=== PATIENT | female | born 1930 | race African-American/Black ===

== ENCOUNTER 2016-08-12 04:54 | Inpatient (IN) | payer MEDICARE ==
[~2016-08-12] VITALS: Ht 149.9 cm; Wt 59.0 kg
[2016-08-12] VITALS (7 sets, daily range): BP systolic 93–152; BP diastolic 63–82
[~2016-08-12 04:54] MED LIST: FUROSEMIDE20 M1 ORAL; LEVOTHYROXINE125 MCG ORAL; VITAMIN B-12100 MCG ORAL
[2016-08-12] MEDS ORDERED: VITAMIN D1000 UNI1 ORAL (05:19)
--- NOTE | 2016-08-12 06:42 | Emergency Room Report ---
History of Present Illness General Chief Complaint: General Complaint Source: Patient, Family Member Present Illness HPI 85 YO F with no known medical problems or meds brought in by her son/daughter-in -law for bizarre behavior at home for 2 days. Patient pleasantly delirious, states she sees "Catholics" who are "spraying me" and "little men who become big men." She denies they are giving her commands or telling her to hurt herself or others. She denies herself SI, HI. Patient is wearing extravegant clothes with beads around her neck and holding rosary 0 family states she has been dressing like that "for years." Patient is alert and oriented to herself, date, time, place. Family denies any new medications. Allergies: Coded Allergies: PENICILLINS (Verified Allergy, 05/03/13) Patient History Past Medical History: none Past Surgical History: none Pertinent Family History: none Social History: Denies: alcohol use, drug use, smoking Now: No Immunizations: UTD Reviewed Nursing Documentation: PMH: Agreed, PSxH: Agreed Nursing Documentation-PMH Past Medical History: No History, Except For Hx Hypertension: No Hx Pacemaker: No Hx Asthma: No Hx COPD: No Hx Diabetes: No Hx Cancer: No Hx Gastrointestinal Problems: No Hx Dialysis: No Hx Neurological Problems: No Hx Cerebrovascular Accident: No Hx Seizures: No Review of Systems All Other Systems: negative except mentioned in HPI Physical Exam Vital Signs Date Time Temp Pulse Resp B/P Pulse Ox O2 Delivery O2 Flow Rate FiO2 08/12/16 05:00 95.7 83 20 159/86 99 Room Air Sp02 EP Interpretation: reviewed, normal General Appearance: normal inspection, well appearing, no apparent distress, alert, GCS 15, non-toxic Head: normocephalic, atraumatic Eyes: bilateral eye EOMI, bilateral eye PERRL ENT: normal ENT inspection, hearing grossly normal, normal voice Neck: normal inspection, full range of motion, supple, no bony tend Respiratory: normal inspection, lungs clear, normal breath sounds, no respiratory distress, no retraction, no wheezing Cardiovascular #1: regular rate, rhythm, no edema Gastrointestinal: normal inspection, normal bowel sounds, non tender, soft, no guarding, no hernia Genitourinary: no CVA tenderness Musculoskeletal: normal inspection, back normal, normal range of motion, Jose Elias' s Sign negative Neurologic: normal inspection, alert, oriented x3, responsive, 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 Normal affect. Extravegant clothing. Skin: normal inspection, normal color, no rash Lymphatic: normal inspection Medical Decision Making Medicare Attestation I Tonny Hart MD hereby attest that the medical record entry for date of service, 07/13/16 accurately reflects signatures/notations that I made in my capacity as MD when I treated/diagnosed the above listed Medicare beneficiary. I attest that this information is true, accurate and complete to the best of my knowledge. I understand that any falsification, omission, or concealment of material fact may subject me to administrative, civil, or criminal liability. This patient warrants hospital admission for extreme of age and has a condition that cannot be treated as outpatient. Diagnostic Impression: Primary Impression: Altered mental status Qualified Codes: R41.0 - Disorientation, unspecified Additional Impression: Visual hallucinations ER Course 85 YO F presents with AMS, visual hallucinations. VSS. Afebrile. PLAN Rule out organic causes: CVA, Sepsis, AMI Admit for further evaluation of acute delirium No need for sedation at this time as patient is calm, cooperative Endorsed to Dr Quintero at 7am to follow up labs, CT head, CXR and manage patient as needed, and endorse to Dr Valladares for admission. EKG Diagnostic Results Rate: normal, other - 1st degree av block Rhythm: NSR ST Segments: no acute changes ASA given to the pt in ED: No Rhythm Strip Diag. Results EP Interpretation: yes Rate: 73 Rhythm: NSR, no PVC's, no ectopy Last Vital Signs Date Time Temp Pulse Resp B/P Pulse Ox O2 Delivery O2 Flow Rate FiO2 08/12/16 05:00 95.7 83 20 159/86 99 Room Air Status: improved Disposition: ADMITTED INPATIENT Condition: Serious Referrals: RAMONA VALLADARES (PCP) TONNY HART M.D. Aug 12, 2016 06:42
[2016-08-12 07:16] LABS: BASOPHILS % (AUTO) 0.6 % (0.0-2.0); EOSINOPHILS % (AUTO) 0.6 % (0.0-3.0); LYMPHOCYTES % (AUTO) 14.9 % (20.0-45.0); MEAN CORPUSCULAR HEMOGLOBIN 30.3 PG (27.0-31.0); MEAN CORPUSCULAR HGB CONC 31.2 G/DL (32.0-36.0); MEAN CORPUSCULAR VOLUME 97 FL (80-99); MEAN PLATELET VOLUME 10.2 FL (6.5-10.1); MONOCYTES % (AUTO) 5.5 % (1.0-10.0); NEUTROPHILS % (AUTO) 78.4 % (45.0-75.0); PLATELET COUNT 163 K/UL (150-450); RED BLOOD COUNT 4.31 M/UL (4.20-5.40); RED CELL DISTRIBUTION WIDTH 16.3 % (11.6-14.8); WHITE BLOOD COUNT 5.1 K/UL (4.8-10.8)
[2016-08-12 07:25] LABS: APPEARANCE,URINE CLEAR; KETONES,URINE NEGATIVE (NEGATIVE); LEUKOCYTE ESTERASE ,URINE 3+ (NEGATIVE); NITRITE,URINE NEGATIVE (NEGATIVE); PH,URINE 6 (4.5-8.0); PROTEIN,URINE NEGATIVE (NEGATIVE); UROBILINOGEN,URINE NORMAL MG/DL (0.0-1.0)
[2016-08-12 07:26] LABS: ACETAMINOPHEN < 10 ug/mL (10-30); ALANINE AMINOTRANSFERASE 42 U/L (3-33); ALCOHOL < 10 mg/dL; ANION GAP 12 (5-15); ASPARTATE AMINO TRANSFERASE 38 U/L (5-40); CALCIUM 9.9 mg/dL (8.6-10.2); CARBON DIOXIDE 30 mEQ/L (20-30); CHLORIDE 99 mEQ/L (98-107); CREATININE 0.9 mg/dL (0.5-0.9); HEMOLYSIS 56; POTASSIUM 4.5 mEQ/L (3.4-4.9); SODIUM 141 mEQ/L (135-145); TOTAL PROTEIN 8.2 g/dL (6.6-8.7); TROPONIN I < 0.30 ng/mL (<=0.30)
[2016-08-12 08:50] LABS: BACTERIA,URINE FEW /HPF; RBC,URINE 0-2 /HPF (0 - 2); SQUAMOUS EPITHELIAL CELL,UR FEW /LPF (NONE/OCC)
--- NOTE | 2016-08-12 10:11 | Diagnostic Imaging Report ---
Indication: Altered mental status, psychosis Technique: spiral acquisitions obtained through the brain. Angled axial and coronal 5 x 5 mm slices were reconstructed. No IV contrast utilized. Radiation dose was minimized using automated exposure control Total dose length product 1346 mGycm. CTDIvol(s) 70 mGy Comparison: none FINDINGS: No acute hemorrhage or edema. No mass effect or midline shift. There is age-related enlargement of the ventricles and extra axial CSF spaces. There is periventricular deep white matter ischemic change. There is a lacunar infarct within the anterior limb of right internal capsule. There are questionable lacunar infarct of indeterminate age in the left circumflex or posterior Normal mooney-white differentiation. Visualized orbits are unremarkable. There is left maxillary and ethmoid sinus disease. Frontal sinuses are aplastic. There is evidence of prior cataract surgery of the left optic globe. Intact calvarium. IMPRESSION: Chronic and age-related changes. Negative for acute intracranial bleed or mass effect This agrees with the preliminary interpretation provided overnight by Dr. Marsh The CT scanner at [facility] is accredited by the [employer] and the scans are performed using protocols designed to limit radiation exposure to as low as reasonably achievable to attain images of sufficient resolution adequate for diagnostic evaluation
[2016-08-12] MEDS ORDERED: Mylanta II UD 30ml ORAL PRN (14:45)
[2016-08-12] MEDS ORDERED: Morphine Sulfate 2mg/ml Inj IVP PRN (14:45)
[2016-08-12] MEDS ORDERED: Miralax 17gm pkt ORAL PRN (14:45)
[2016-08-12] MEDS ORDERED: Zolpidem 5mg tab ORAL PRN (14:45)
[2016-08-12] MEDS ORDERED: LORazepam Inj 2mg/ml 1ml IV PRN (14:45)
--- NOTE | 2016-08-12 17:40 | History and Physical ---
History of Present Illness General Date patient seen: Aug 12, 2016 Reason for Hospitalization: General Complaint Present Illness HPI 85 year old female with hx of end stage Alzheimers, cachexia brought in by her son/nhjobmna-ka-gat for bizarre behavior at home for 2 days. Patient pleasantly delirious, states she sees "Catholics" who are "spraying me" and "little men who become big men." She denies they are giving her commands or telling her to hurt herself or others. Patient is alert and oriented to herself. The son stating that she has been deteriorating and getting weaker and hard of hearing as well. Allergies: Coded Allergies: PENICILLINS (Verified Allergy, 05/03/13) Medication History Scheduled Cholecalciferol (Vitamin D3)* (Vitamin D*), 1,000 UNIT ORAL DAILY, (Reported) Cyanocobalamin (Vitamin B-12), MCG ORAL DAILY, (Reported) Furosemide* (Lasix*), 20 MG ORAL DAILY Levothyroxine Sodium* (Levothyroxine Sodium*), 125 MCG ORAL DAILY, (Reported) Patient History Healthcare decision maker Resuscitation status Full Code Advanced Directive on File No Past Medical/Surgical History Past Medical/Surgical History: (1) Alzheimer's dementia (2) Cachexia Review of Systems All Other Systems: negative except mentioned in HPI Physical Exam General Appearance: WD/WN Lines, tubes and drains: peripheral HEENT: normocephalic Neck: non-tender, normal alignment Respiratory/Chest: chest wall non-tender, lungs clear Cardiovascular/Chest: normal peripheral pulses, normal rate Abdomen: normal bowel sounds Genitourinary/Rectal: normal genital exam Extremities: normal range of motion Last 24 Hour Vital Signs Date Time Temp Pulse Resp B/P Pulse Ox O2 Delivery O2 Flow Rate FiO2 08/12/16 16:00 97.2 95 20 126/82 95 Room Air 08/12/16 11:47 96.6 80 18 128/69 100 Room Air 08/12/16 10:36 95.5 76 20 152/72 98 Room Air 08/12/16 10:05 78 16 130/80 100 Room Air 08/12/16 10:03 96.8 8 16 130/80 98 Room Air 08/12/16 07:24 95.7 72 15 132/80 100 Room Air 08/12/16 07:10 72 16 132/69 100 Room Air 08/12/16 05:00 95.7 83 20 159/86 99 Room Air Laboratory Tests Test 08/12/16 06:42 White Blood Count 5.1 K/UL (4.8-10.8) Red Blood Count 4.31 M/UL (4.20-5.40) Hemoglobin 13.1 G/DL (12.0-16.0) Hematocrit 41.9 % (37.0-47.0) Mean Corpuscular Volume 97 FL (80-99) Mean Corpuscular Hemoglobin 30.3 PG (27.0-31.0) Mean Corpuscular Hemoglobin Concent 31.2 G/DL (32.0-36.0) L Red Cell Distribution Width 16.3 % (11.6-14.8) H Platelet Count 163 K/UL (150-450) Mean Platelet Volume 10.2 FL (6.5-10.1) H Neutrophils (%) (Auto) 78.4 % (45.0-75.0) H Lymphocytes (%) (Auto) 14.9 % (20.0-45.0) L Monocytes (%) (Auto) 5.5 % (1.0-10.0) Eosinophils (%) (Auto) 0.6 % (0.0-3.0) Basophils (%) (Auto) 0.6 % (0.0-2.0) Urine Color Pale yellow Urine Appearance Clear Urine pH 6 (4.5-8.0) Urine Specific [place] 1.010 (1.005-1.035) Urine Protein Negative (NEGATIVE) Urine Glucose (UA) Negative (NEGATIVE) Urine Ketones Negative (NEGATIVE) Urine Occult Blood 1+ (NEGATIVE) H Urine Nitrite Negative (NEGATIVE) Urine Bilirubin Negative (NEGATIVE) Urine Urobilinogen Normal MG/DL (0.0-1.0) Urine Leukocyte Esterase 3+ (NEGATIVE) H Urine RBC 0-2 /HPF (0 - 2) Urine WBC 5-10 /HPF (0 - 2) H Urine Squamous Epithelial Cells Few /LPF (NONE/OCC) Urine Bacteria Few /HPF (NONE) Sodium Level 141 mEQ/L (135-145) Potassium Level 4.5 mEQ/L (3.4-4.9) Chloride Level 99 mEQ/L (98-107) Carbon Dioxide Level 30 mEQ/L (20-30) Anion Gap 12 (5-15) Blood Urea Nitrogen 25 mg/dL (7-23) H Creatinine 0.9 mg/dL (0.5-0.9) Estimat Glomerular Filtration Rate mL/min (>60) Glucose Level 100 mg/dL (74-106) Calcium Level 9.9 mg/dL (8.6-10.2) Total Bilirubin < 0.2 mg/dL (0.0-1.2) Aspartate Amino Transf (AST/SGOT) 38 U/L (5-40) Alanine Aminotransferase (ALT/SGPT) 42 U/L (3-33) H Alkaline Phosphatase 167 U/L (35-104) H Total Creatine Kinase 113 U/L (26-140) Creatine Kinase MB 8.0 ng/mL (< 3.8) H Creatine Kinase MB Relative Index 7.0 Troponin I < 0.30 ng/mL (<=0.30) Total Protein 8.2 g/dL (6.6-8.7) Albumin 4.2 g/dL (3.5-5.2) Globulin 4.0 g/dL Albumin/Globulin Ratio 1.0 (1.0-2.7) Salicylates Level < 1 mg/dL (10-30) L Urine Opiates Screen Negative (NEGATIVE) Acetaminophen Level < 10 ug/mL (10-30) L Urine Barbiturates Screen Negative (NEGATIVE) Phencyclidine (PCP) Screen Negative (NEGATIVE) Urine Amphetamines Screen Negative (NEGATIVE) Urine Benzodiazepines Screen Negative (NEGATIVE) Urine Cocaine Screen Negative (NEGATIVE) Urine Marijuana (THC) Screen Negative (NEGATIVE) Serum Alcohol < 10 mg/dL Height (Feet): 4 Height (Inches): 11.00 Weight (Pounds): 130 Medications Current Medications Medications (Trade) Dose Ordered Sig/Oswaldo Route PRN Reason Start Time Stop Time Status Last Admin Dose Admin Acetaminophen (Tylenol) 650 mg Q4H PRN ORAL fever 08/12/16 14:45 09/11/16 14:44 Al Hydroxide/Mg Hydroxide (Mylanta II) 30 ml Q6H PRN ORAL dyspepsia 08/12/16 14:45 09/11/16 14:44 Dextrose (Dextrose 50%) STAT PRN IV Hypoglycemia 08/12/16 14:45 09/11/16 14:44 Levothyroxine Sodium (Synthroid) 125 mcg ACBREAKFAST ORAL 08/13/16 06:30 09/12/16 06:29 Lorazepam (Ativan 2mg/ml 1ml) 0.5 mg Q4H PRN IV For Anxiety 08/12/16 14:45 08/19/16 14:44 Morphine Sulfate (Morphine Sulfate) 1 mg Q4H PRN IVP For Pain 08/12/16 14:45 08/19/16 14:44 Ondansetron HCl (Zofran) 4 mg Q6H PRN IVP Nausea & Vomiting 08/12/16 14:45 09/11/16 14:44 Polyethylene Glycol (Miralax) 17 gm HSPRN PRN ORAL Constipation 08/12/16 14:45 09/11/16 14:44 Zolpidem Tartrate (Ambien) 5 mg HSPRN PRN ORAL Insomnia 08/12/16 14:45 09/11/16 14:44 Assessment/Plan Problem List: (1) Acute encephalopathy ICD Codes: G93.40 - Encephalopathy, unspecified SNOMED: 6153918 (2) Visual hallucinations ICD Codes: R44.1 - Visual hallucinations SNOMED: 55625611 (3) UTI (urinary tract infection) ICD Codes: N39.0 - Urinary tract infection, site not specified SNOMED: 00192970 Qualifiers: Qualified Codes: N30.00 - Acute cystitis without hematuria (4) Hypothyroidism ICD Codes: E03.9 - Hypothyroidism, unspecified SNOMED: 21170809 Qualifiers: Qualified Codes: E03.9 - Hypothyroidism, unspecified (5) Cachexia ICD Codes: R64 - Cachexia SNOMED: 249671405 (6) Alzheimer's dementia ICD Codes: G30.9 - Alzheimer's disease, unspecified SNOMED: 35639444 Qualifiers: Qualified Codes: G30.1 - Alzheimer's disease with late onset; F02.81 - Dementia in other diseases classified elsewhere with behavioral disturbance Assessment/Plan psych evaluation IV antibiotics ENT for difficulty hearing check urine cultures RAMONA MCCULLOUGH Aug 12, 2016 17:40
[2016-08-13] VITALS: BP 106/62
--- NOTE | 2016-08-13 00:17 | Consultation ---
History of Present Illness General Chief Complaint: General Complaint Present Illness HPI 85 yo is confused and disoriented, endorses vh, ah and is delusional. waxing and waning of consciousness. impairment of cognition. the presentation started 3 days ago in the context of mc. uti. Allergies: Coded Allergies: PENICILLINS (Verified Allergy, 05/03/13) Medication History Scheduled Cholecalciferol (Vitamin D3)* (Vitamin D*), 1,000 UNIT ORAL DAILY, (Reported) Cyanocobalamin (Vitamin B-12), MCG ORAL DAILY, (Reported) Furosemide* (Lasix*), 20 MG ORAL DAILY Levothyroxine Sodium* (Levothyroxine Sodium*), 125 MCG ORAL DAILY, (Reported) Patient History Limited by: medical condition History Provided By: Patient, Medical Record, PMD Healthcare decision maker Resuscitation status Full Code Advanced Directive on File No Past Medical/Surgical History Past Medical/Surgical History: (1) closed head injury (2) facial contusion (3) Dysuria (4) Otitis (5) Peripheral edema (6) Acute on chronic diastolic (congestive) heart failure (7) Visual hallucinations (8) Altered mental status (9) Cachexia (10) Alzheimer's dementia (11) Hypothyroidism (12) UTI (urinary tract infection) (13) Acute encephalopathy Review of Systems Constitutional: Reports: malaise, weakness Psychiatric: Reports: emotional problems, hallucinations, prior hx Physical Exam General Appearance: alert, confused, mild distress Neurologic: alert, disoriented, depressed affect Last 24 Hour Vital Signs Date Time Temp Pulse Resp B/P Pulse Ox O2 Delivery O2 Flow Rate FiO2 08/12/16 20:00 98.7 67 20 93/63 93 Room Air 08/12/16 16:00 97.2 95 20 126/82 95 Room Air 08/12/16 11:47 96.6 80 18 128/69 100 Room Air 08/12/16 10:36 95.5 76 20 152/72 98 Room Air 08/12/16 10:05 78 16 130/80 100 Room Air 08/12/16 10:03 96.8 8 16 130/80 98 Room Air 08/12/16 07:24 95.7 72 15 132/80 100 Room Air 08/12/16 07:10 72 16 132/69 100 Room Air 08/12/16 05:00 95.7 83 20 159/86 99 Room Air Intake and Output 08/12/16 08/13/16 19:00 07:00 Intake Total 360 ml 500 ml Balance 360 ml 500 ml Intake Oral 360 ml 500 ml # Voids 5 3 # Bowel Movements 1 1 Laboratory Tests Test 08/12/16 06:42 White Blood Count 5.1 K/UL (4.8-10.8) Red Blood Count 4.31 M/UL (4.20-5.40) Hemoglobin 13.1 G/DL (12.0-16.0) Hematocrit 41.9 % (37.0-47.0) Mean Corpuscular Volume 97 FL (80-99) Mean Corpuscular Hemoglobin 30.3 PG (27.0-31.0) Mean Corpuscular Hemoglobin Concent 31.2 G/DL (32.0-36.0) L Red Cell Distribution Width 16.3 % (11.6-14.8) H Platelet Count 163 K/UL (150-450) Mean Platelet Volume 10.2 FL (6.5-10.1) H Neutrophils (%) (Auto) 78.4 % (45.0-75.0) H Lymphocytes (%) (Auto) 14.9 % (20.0-45.0) L Monocytes (%) (Auto) 5.5 % (1.0-10.0) Eosinophils (%) (Auto) 0.6 % (0.0-3.0) Basophils (%) (Auto) 0.6 % (0.0-2.0) Urine Color Pale yellow Urine Appearance Clear Urine pH 6 (4.5-8.0) Urine Specific [place] 1.010 (1.005-1.035) Urine Protein Negative (NEGATIVE) Urine Glucose (UA) Negative (NEGATIVE) Urine Ketones Negative (NEGATIVE) Urine Occult Blood 1+ (NEGATIVE) H Urine Nitrite Negative (NEGATIVE) Urine Bilirubin Negative (NEGATIVE) Urine Urobilinogen Normal MG/DL (0.0-1.0) Urine Leukocyte Esterase 3+ (NEGATIVE) H Urine RBC 0-2 /HPF (0 - 2) Urine WBC 5-10 /HPF (0 - 2) H Urine Squamous Epithelial Cells Few /LPF (NONE/OCC) Urine Bacteria Few /HPF (NONE) Sodium Level 141 mEQ/L (135-145) Potassium Level 4.5 mEQ/L (3.4-4.9) Chloride Level 99 mEQ/L (98-107) Carbon Dioxide Level 30 mEQ/L (20-30) Anion Gap 12 (5-15) Blood Urea Nitrogen 25 mg/dL (7-23) H Creatinine 0.9 mg/dL (0.5-0.9) Estimat Glomerular Filtration Rate mL/min (>60) Glucose Level 100 mg/dL (74-106) Calcium Level 9.9 mg/dL (8.6-10.2) Total Bilirubin < 0.2 mg/dL (0.0-1.2) Aspartate Amino Transf (AST/SGOT) 38 U/L (5-40) Alanine Aminotransferase (ALT/SGPT) 42 U/L (3-33) H Alkaline Phosphatase 167 U/L (35-104) H Total Creatine Kinase 113 U/L (26-140) Creatine Kinase MB 8.0 ng/mL (< 3.8) H Creatine Kinase MB Relative Index 7.0 Troponin I < 0.30 ng/mL (<=0.30) Total Protein 8.2 g/dL (6.6-8.7) Albumin 4.2 g/dL (3.5-5.2) Globulin 4.0 g/dL Albumin/Globulin Ratio 1.0 (1.0-2.7) Salicylates Level < 1 mg/dL (10-30) L Urine Opiates Screen Negative (NEGATIVE) Acetaminophen Level < 10 ug/mL (10-30) L Urine Barbiturates Screen Negative (NEGATIVE) Phencyclidine (PCP) Screen Negative (NEGATIVE) Urine Amphetamines Screen Negative (NEGATIVE) Urine Benzodiazepines Screen Negative (NEGATIVE) Urine Cocaine Screen Negative (NEGATIVE) Urine Marijuana (THC) Screen Negative (NEGATIVE) Serum Alcohol < 10 mg/dL Height (Feet): 4 Height (Inches): 11.00 Weight (Pounds): 130 Medications Current Medications Medications (Trade) Dose Ordered Sig/Oswaldo Route PRN Reason Start Time Stop Time Status Last Admin Dose Admin Acetaminophen (Tylenol) 650 mg Q4H PRN ORAL fever 08/12/16 14:45 09/11/16 14:44 Al Hydroxide/Mg Hydroxide (Mylanta II) 30 ml Q6H PRN ORAL dyspepsia 08/12/16 14:45 09/11/16 14:44 Dextrose (Dextrose 50%) STAT PRN IV Hypoglycemia 08/12/16 14:45 09/11/16 14:44 Levothyroxine Sodium (Synthroid) 125 mcg ACBREAKFAST ORAL 08/13/16 06:30 09/12/16 06:29 Lorazepam (Ativan 2mg/ml 1ml) 0.5 mg Q4H PRN IV For Anxiety 08/12/16 14:45 08/19/16 14:44 Morphine Sulfate (Morphine Sulfate) 1 mg Q4H PRN IVP For Pain 08/12/16 14:45 08/19/16 14:44 Ondansetron HCl (Zofran) 4 mg Q6H PRN IVP Nausea & Vomiting 08/12/16 14:45 09/11/16 14:44 Polyethylene Glycol (Miralax) 17 gm HSPRN PRN ORAL Constipation 08/12/16 14:45 09/11/16 14:44 Zolpidem Tartrate (Ambien) 5 mg HSPRN PRN ORAL Insomnia 08/12/16 14:45 09/11/16 14:44 Assessment/Plan Status: not improved Assessment/Plan Delirium due to GMC risperdal 1mg bid please limit using hypnotics, benzos or anxiolytics Tesfaye Bonilla M.D. Aug 13, 2016 00:17
[2016-08-13 04:00] VITALS: BP 117/64
[2016-08-13] MEDS: Levothyroxine 125mcg tab ORAL SCH (06:30)
[2016-08-13 07:12] LABS: BASOPHILS % (AUTO) 1.1 % (0.0-2.0); EOSINOPHILS % (AUTO) 1.2 % (0.0-3.0); LYMPHOCYTES % (AUTO) 19.7 % (20.0-45.0); MEAN CORPUSCULAR HGB CONC 31.8 G/DL (32.0-36.0); MEAN CORPUSCULAR VOLUME 97 FL (80-99); MEAN PLATELET VOLUME 9.3 FL (6.5-10.1); MONOCYTES % (AUTO) 7.8 % (1.0-10.0); NEUTROPHILS % (AUTO) 70.3 % (45.0-75.0); PLATELET COUNT 139 K/UL (150-450); RED BLOOD COUNT 3.69 M/UL (4.20-5.40); RED CELL DISTRIBUTION WIDTH 15.9 % (11.6-14.8); WHITE BLOOD COUNT 4.4 K/UL (4.8-10.8)
[2016-08-13 07:37] LABS: ALANINE AMINOTRANSFERASE 31 U/L (3-33); ALBUMIN/GLOBULIN RATIO 0.9 (1.0-2.7); ANION GAP 7 (5-15); ASPARTATE AMINO TRANSFERASE 28 U/L (5-40); CALCIUM 9.1 mg/dL (8.6-10.2); CARBON DIOXIDE 31 mEQ/L (20-30); CHLORIDE 104 mEQ/L (98-107); CHOLESTEROL 213 mg/dL (< 200); CREATININE 0.9 mg/dL (0.5-0.9); HEMOLYSIS 6; LDL CHOLESTEROL (CALC.) 99 mg/dL (60-99); POTASSIUM 4.3 mEQ/L (3.4-4.9); SODIUM 142 mEQ/L (135-145); TOTAL PROTEIN 6.7 g/dL (6.6-8.7)
[2016-08-13 07:54] VITALS: BP 135/65
--- NOTE | 2016-08-13 11:27 | Consultation ---
DATE OF CONSULTATION: 08/13/2016 HEAD AND NECK SURGERY/ENT CONSULTATION: REQUESTING PHYSICIAN: Michael Valladares M.D. CONSULTING PHYSICIAN: Yon Stapleton M.D. INDICATION FOR CONSULTATION: I have been asked to evaluate the patient for the itching in her left ear. She has a past medical history of Alzheimer and cachexia. PAST MEDICAL HISTORY: Taken from the notes as the patient is unable to give me a coherent history. She has end-stage Alzheimer disease. MEDICATIONS: Risperdal, Synthroid, Tylenol, morphine, MiraLAX, Zofran, Ambien, Ativan, and Mylanta. ALLERGIES: She is allergic to penicillin. PHYSICAL EXAMINATION: HEENT: Head normocephalic. Eyes, PERRLA. EOMI. Mouth, she has upper and lower dentures. Ears, on the right normal, left ear she has some cerumen which is what is causing itching. Nose normal. NECK: No palpable masses. ASSESSMENT: 1. Otalgia. 2. Cerumen in the left ear. 3. Hearing loss. 4. Alzheimer. PLAN: I will come back in the next few days and remove the wax that is partially obstructed in the left ear may be causing some itching but is not responsible for her hearing loss. Thank you very much for asking my opinion in the care and treatment of this patient. Yon Stapleton M.D. DR: Dar JOB#: [id number] CC:
[2016-08-13 11:29] VITALS: BP 103/54
[2016-08-13 16:00] VITALS: BP 82/43
--- NOTE | 2016-08-13 16:59 | Pulmonology Progress Note ---
Assessment/Plan Problems: (1) Acute encephalopathy (2) Visual hallucinations (3) UTI (urinary tract infection) (4) Hypothyroidism (5) Cachexia (6) Alzheimer's dementia Assessment/Plan psych note appreciated doing better with resperidol dc home in am. Subjective ROS Limited/Unobtainable: No Interval Events: no new complains, doing better Allergies: Coded Allergies: PENICILLINS (Verified Allergy, 05/03/13) Objective Last 24 Hour Vital Signs Date Time Temp Pulse Resp B/P Pulse Ox O2 Delivery O2 Flow Rate FiO2 08/13/16 16:00 97.5 67 20 82/43 97 Room Air 08/13/16 11:29 97.6 61 19 103/54 97 Room Air 08/13/16 07:54 97.5 70 20 135/65 98 Room Air 08/13/16 04:00 95.5 90 20 117/64 100 Room Air 08/13/16 00:00 95.7 67 20 106/62 100 Room Air 08/12/16 20:00 98.7 67 20 93/63 93 Room Air Intake and Output 08/12/16 08/13/16 19:00 07:00 Intake Total 360 ml 500 ml Balance 360 ml 500 ml Intake Oral 360 ml 500 ml # Voids 5 4 # Bowel Movements 1 2 HEENT: normocephalic Respiratory/Chest: chest wall non-tender, lungs clear Cardiovascular: normal peripheral pulses, normal rate Abdomen: normal bowel sounds, soft, non tender Genitourinary: normal external genitalia Laboratory Tests 08/13/16 05:30: White Blood Count 4.4L, Red Blood Count 3.69L, Hemoglobin 11.5L, Hematocrit 36.0L, Mean Corpuscular Volume 97, Mean Corpuscular Hemoglobin 31.0, Mean Corpuscular Hemoglobin Concent 31.8L, Red Cell Distribution Width 15.9H, Platelet Count 139L, Mean Platelet Volume 9.3, Neutrophils (%) (Auto) 70.3, Lymphocytes (%) (Auto) 19.7L, Monocytes (%) (Auto) 7.8, Eosinophils (%) (Auto) 1.2, Basophils (%) (Auto) 1.1, Sodium Level 142, Potassium Level 4.3, Chloride Level 104, Carbon Dioxide Level 31H, Anion Gap 7, Blood Urea Nitrogen 25H, Creatinine 0.9, Estimat Glomerular Filtration Rate , Glucose Level 69L, Calcium Level 9.1, Total Bilirubin 0.2, Aspartate Amino Transf (AST/SGOT) 28, Alanine Aminotransferase (ALT/SGPT) 31, Alkaline Phosphatase 122H, Total Protein 6.7, Albumin 3.3L, Globulin 3.4, Albumin/Globulin Ratio 0.9L, Triglycerides Level 45 , Cholesterol Level 213H, LDL Cholesterol 99, HDL Cholesterol 105H, Cholesterol/ HDL Ratio 2.0L, Thyroid Stimulating Hormone (TSH) 2.680 Current Medications Medications (Trade) Dose Ordered Sig/Oswaldo Route PRN Reason Start Time Stop Time Status Last Admin Dose Admin Acetaminophen (Tylenol) 650 mg Q4H PRN ORAL fever 08/12/16 14:45 09/11/16 14:44 Al Hydroxide/Mg Hydroxide (Mylanta II) 30 ml Q6H PRN ORAL dyspepsia 08/12/16 14:45 09/11/16 14:44 Dextrose (Dextrose 50%) STAT PRN IV Hypoglycemia 08/12/16 14:45 09/11/16 14:44 Levothyroxine Sodium (Synthroid) 125 mcg ACBREAKFAST ORAL 08/13/16 06:30 09/12/16 06:29 Lorazepam (Ativan 2mg/ml 1ml) 0.5 mg Q4H PRN IV For Anxiety 08/12/16 14:45 08/19/16 14:44 Morphine Sulfate (Morphine Sulfate) 1 mg Q4H PRN IVP For Pain 08/12/16 14:45 08/19/16 14:44 Ondansetron HCl (Zofran) 4 mg Q6H PRN IVP Nausea & Vomiting 08/12/16 14:45 09/11/16 14:44 Polyethylene Glycol (Miralax) 17 gm HSPRN PRN ORAL Constipation 08/12/16 14:45 09/11/16 14:44 Risperidone (RisperDAL) 1 mg BID ORAL 08/13/16 09:00 09/12/16 08:59 08/13/16 08:59 Zolpidem Tartrate (Ambien) 5 mg HSPRN PRN ORAL Insomnia 08/12/16 14:45 09/11/16 14:44 RAMONA MCCULLOUGH Aug 13, 2016 16:59
[2016-08-13] MEDS ORDERED: RISPERDAL1 MG ORAL (17:01)
[2016-08-13 19:00] VITALS: BP 96/51
[2016-08-14] VITALS: BP 94/51
[2016-08-14 04:00] VITALS: BP 100/44
[2016-08-14] MEDS: Levothyroxine 125mcg tab ORAL SCH (06:49)
[2016-08-14 07:47] VITALS: BP 120/62
--- NOTE | 2016-08-14 08:28 | Pulmonology Progress Note ---
Assessment/Plan Assessment/Plan ASSESSMENT acute toxic encephalopathy 2 to delirium due to medical condition visual hallucinations hypothyroidism Alzheimer dementia L ear cerumen PLAN OF CARE [facility] floor, mental status back to baseline, no further visual hallucinations CT head negative urine tox screen negative Venous Duplex BLE negative psych eval appreciated started on Risperdal, no sedatives, anxiolytic, hypnotics TSH WNL, continue current dose of levothyroxine ENT eval appreciated + cerumen L ear, need to be removed - fup with ENT as outpt for hearing loss ( not sudden) and L ear cerumen removal dc today case discussed and evaluated by supervising physician dc today Subjective Allergies: Coded Allergies: PENICILLINS (Verified Allergy, 05/03/13) Subjective mental status back to baseline no further visual hallucinations denies CP, SOB, palpitations, dizziness Objective Last 24 Hour Vital Signs Date Time Temp Pulse Resp B/P Pulse Ox O2 Delivery O2 Flow Rate FiO2 08/14/16 07:47 97.0 62 14 120/62 98 Room Air 08/14/16 04:00 96.6 58 20 100/44 96 Room Air 08/14/16 00:00 96.0 56 20 94/51 91 Room Air 08/13/16 19:00 97.3 62 20 96/51 100 Room Air 08/13/16 16:00 97.5 67 20 82/43 97 Room Air 08/13/16 11:29 97.6 61 19 103/54 97 Room Air Intake and Output 08/13/16 08/14/16 19:00 07:00 Intake Total 450 ml 120 ml Output Total 420 ml Balance 30 ml 120 ml Intake Oral 450 ml 120 ml Output Urine Total 420 ml # Voids 3 General Appearance: no acute distress, other - awake, alert, responsive, elderly AA female in the bed HEENT: normocephalic, atraumatic, anicteric, mucous membranes moist, no JVD Respiratory/Chest: lungs clear, no respiratory distress, no accessory muscle use Cardiovascular: normal peripheral pulses, normal rate, no JVD Abdomen: normal bowel sounds, soft, non tender, non distended Genitourinary: normal external genitalia Extremities: no edema, pedal pulses normal Neurologic/Psychiatric: alert, responsive, normal mood/affect Musculoskeletal: atrophy - BLE Current Medications Medications (Trade) Dose Ordered Sig/Oswaldo Route PRN Reason Start Time Stop Time Status Last Admin Dose Admin Acetaminophen (Tylenol) 650 mg Q4H PRN ORAL fever 08/12/16 14:45 09/11/16 14:44 Al Hydroxide/Mg Hydroxide (Mylanta II) 30 ml Q6H PRN ORAL dyspepsia 08/12/16 14:45 09/11/16 14:44 Dextrose (Dextrose 50%) STAT PRN IV Hypoglycemia 08/12/16 14:45 09/11/16 14:44 Levothyroxine Sodium (Synthroid) 125 mcg ACBREAKFAST ORAL 08/13/16 06:30 09/12/16 06:29 08/14/16 06:49 Lorazepam (Ativan 2mg/ml 1ml) 0.5 mg Q4H PRN IV For Anxiety 08/12/16 14:45 08/19/16 14:44 Morphine Sulfate (Morphine Sulfate) 1 mg Q4H PRN IVP For Pain 08/12/16 14:45 08/19/16 14:44 Ondansetron HCl (Zofran) 4 mg Q6H PRN IVP Nausea & Vomiting 08/12/16 14:45 09/11/16 14:44 Polyethylene Glycol (Miralax) 17 gm HSPRN PRN ORAL Constipation 08/12/16 14:45 09/11/16 14:44 Risperidone (RisperDAL) 1 mg BID ORAL 08/13/16 09:00 09/12/16 08:59 08/13/16 18:32 Zolpidem Tartrate (Ambien) 5 mg HSPRN PRN ORAL Insomnia 08/12/16 14:45 09/11/16 14:44 Oralia Ruff NP ([facility]) Aug 14, 2016 08:28
--- NOTE | 2016-08-14 10:45 | Discharge Instructions ---
Discharge Instructions Discharge Instructions Follow up with: with PMD Call MD/Return to Hospital if: weakness, change in mental status,. chets pain, shortness of breath Diet: regular - as tolerated Activity: as tolerated Special Instructions fup with ENT as outpt for cerumen removal and hearing loss For Congestive Heart Failure Reminder Report to your physician any weight gain of 5 pounds or more in one week. Speedy ([facility]),Oralia TAYLOR Aug 14, 2016 10:45
[2016-08-14 11:31] VITALS: BP 109/60
--- NOTE | 2016-08-16 10:32 | Diagnostic Imaging Report ---
Indication: PAIN Technique: One view of the chest Comparison: none Findings: The heart borderline enlarged. Aorta is tortuous and calcified. Upper mediastinum is unremarkable. There is no significant interim change Impression: No acute process Borderline cardiomegaly
--- NOTE | 2016-08-16 10:32 | Cardiology Report ---
APPROVED REPORT EKG Measurement Heart [id number] Sinus rhythm with 1st degree AV block Nonspecific ST abnormality Abnormal ECG
--- NOTE | 2016-08-17 08:52 | Discharge Summary ---
Discharge Summary Hospital Course Date of Admission Aug 12, 2016 at 06:51 Date of Discharge Aug 14, 2016 at 17:15 Admitting Diagnosis AMS visual hallucinations Reason for Hospitalization: bizarre behavios, hearing voices HPI Enriqueta Vidhya Crawley is a 85 year old female who was admitted on Aug 12, 2016 at 06: 51 for Altered Mental Status Consultations psych dr Bonilla ENT - dr Stapleton [facility] Course admitted to [place] floor CT head negative urine tox screen negative Venous Duplex BLE negative psych eval done started on Risperdal, no sedatives, anxiolytic, hypnotics mental status back to baseline, no further visual hallucinations acute toxic encephalopathy likely 2 to delirium 2 to general medical condition -resolved TSH WNL, continue current dose of levothyroxine ENT eval done + cerumen L ear, need to be removed - as outpatient if discharged fup with ENT as outpt for hearing loss ( not sudden) and L ear cerumen removal Discharge Medications New Medications: Risperidone* (Risperdal*) 1 Mg Tablet 1 MG ORAL BID for 30 Days, TAB Continued Medications: Levothyroxine Sodium* (Levothyroxine Sodium*) 125 Mcg Tablet 125 MCG ORAL DAILY, TAB Take in the morning on an empty stomach, at least 30 minutes before food. Discharge Condition Upon Discharge: improving, stable Discharge Disposition Patient was discharged to Home (01) Discharge Diagnoses: (1) Toxic encephalopathy (2) Delirium due to general medical condition (3) Visual hallucination (4) Alzheimer's dementia (5) Hypothyroidism (6) Excessive cerumen in left ear canal (7) Hearing loss Discharge Instructions Discharge Instructions Follow up with: with PMD Call MD/Return to Hospital if: weakness, change in mental status,. chets pain, shortness of breath Activity: as tolerated Oralia Ruff NP ([facility]anchtein) Aug 17, 2016 08:52
--- NOTE | 2016-08-18 22:58 | Diagnostic Imaging Report ---
APPROVED REPORT CPT Code: 60135 Present Symptoms Lower Extremity Pain: Bilateral BILATERAL: Imaging reveals a patent deep venous system bilaterally. There is no evidence of thrombus within the femoral, popliteal or tibial segments. The greater saphenous veins are also within normal limits. Doppler indicates normal spontaneous flow within these segments.
== END 2016-08-14 17:15 | disposition home or self-care (01) | DRG 56 ==
LOC: ENRESERVTM → ENRESERV → ENRESERVDT → EMR 06:00 → 4E 06:51 → EDBEDREQ 09:33
DX: G30.9 Alzheimer's disease, unspecified (principal); G92 Toxic encephalopathy; R64 Cachexia; F02.81 Dementia in other diseases classified elsewhere, unspecified severity, with behavioral disturbance; N30.00 Acute cystitis without hematuria; H92.02 Otalgia, left ear; H91.90 Unspecified hearing loss, unspecified ear; E03.9 Hypothyroidism, unspecified; R44.1 Visual hallucinations; Z88.0 Allergy status to penicillin
CPT/HCPCS: 36415; 70450; 71010; 80053; 80061; 80300; 80329; 81003; 82550; 82553; 84443; 84484; 85025; 93005; 93970